=== PATIENT | female | born 1960 ===

== ENCOUNTER → 2023-03-11 11:44 | Outpatient (CLI) | payer BC, SELFPAY ==
--- NOTE | ~2023-03-11 | CT_ITS ---
CT of the Abdomen and Pelvis: Indication: Diverticulosis Technique: 2.5 mm axial scans were obtained through the abdomen and pelvis following intravenous adm inistration of 100 cc of Omnipaque 350. Dose reduction technique was used on this scan by utilizing a utomated exposure control and iterative reconstruction technique. The dose-length product (DLP) was 1 124.76 mGy-cm. Findings: Scans through the lung bases are unremarkable. The liver, spleen, pancreas, gallbladder, right adrenal gland, and left kidney are within normal limi ts. 2 mm nonobstructing right renal stone noted. 2 cm left adrenal nodule is indeterminate based on t his exam. No evidence of aortic aneurysm. No bowel obstruction or bowel wall thickening. There is no evidence to suggest acute appendicitis. No significant diverticular disease identified. There are small shotty right lower quadrant lymph nodes . Images through the pelvis were performed. Urinary bladder unremarkable. Patient is post hysterectomy. No pelvic mass seen. No ascites. Impression: 2 mm nonobstructing right renal stone. 2 cm indeterminate left adrenal nodule. Consider follow-up noncontrast CT or MR to attempt to confirm adenoma. Small shotty right lower quadrant lymph nodes. Consider mesenteric adenitis. No significant diverticular disease identified. Reviewed, dictated and finalized at location . Impression: 2 mm nonobstructing right renal stone. 2 cm indeterminate left adrenal nodule. Consider follow-up noncontrast CT or MR to attempt to confirm adenoma. Small shotty right lower quadrant lymph nodes. Consider mesenteric adenitis. No significant diverticular disease identified.
[2023-03-11 12:02] LABS: Estimated Glomerular Filt Rate 50
== END ==
PROVIDERS: PCP Pediatrics; Visit Provider Nurse Practitioner Family
DX: K57.30 Diverticulosis of large intestine without perforation or abscess without bleeding (principal); N20.0 Calculus of kidney; R59.0 Localized enlarged lymph nodes; E27.9 Disorder of adrenal gland, unspecified
CPT/HCPCS: 74177; Q9967

== ENCOUNTER → 2023-03-19 10:02 | Outpatient (CLI) | payer BC, SELFPAY ==
--- NOTE | ~2023-03-19 | MR_ITS ---
EXAMINATION: MR abdomen wo con DATE: 03/19/2023 10:50 INDICATION: Mesenteric adenitis. Generalized abdominal pain. TECHNIQUE: Magnetic resonance imaging (MRI) of the abdomen was performed without intravenous contrast . COMPARISON: CT abdomen and pelvis 03/11/2023 FINDINGS: The liver is normal. There are gallstones in the gallbladder, which is normal in size. There is a 7 m m cystic lesion in the pancreas. The spleen and right adrenal gland are normal. There is a 2.1 cm mas s in left adrenal gland containing microscopic fat, consistent with an adenoma. The kidneys are qiana l. There are no dilated loops of bowel. There are no pathologically enlarged lymph nodes. There is no free intraperitoneal fluid. IMPRESSION: 1. 2.1 cm left adrenal adenoma. 2. 7 mm cystic lesion in the pancreas. The differential diagnosis includes pseudocyst, intraductal pa pillary mucinous neoplasm (IPMN), mucinous cystic neoplasm (MCN), serous cystadenoma, and neuroendocr ine tumor. Abdomen MRI without and with contrast is recommended in one year. Reviewed, dictated and finalized at location A. IMPRESSION: 1. 2.1 cm left adrenal adenoma. 2. 7 mm cystic lesion in the pancreas. The differential diagnosis includes pseu docyst, intraductal papillary mucinous neoplasm (IPMN), mucinous cystic neoplas m (MCN), serous cystadenoma, and neuroendocrine tumor. Abdomen MRI without and with contrast is recommended in one year.
== END ==
PROVIDERS: PCP Internal Medicine Rheumatology; Visit Provider Nurse Practitioner Family
DX: I88.0 Nonspecific mesenteric lymphadenitis (principal); D35.00 Benign neoplasm of unspecified adrenal gland; N20.0 Calculus of kidney; K86.2 Cyst of pancreas
CPT/HCPCS: 74181

== ENCOUNTER → 2023-06-25 10:02 | Outpatient (CLI) | payer MEDICARE, BC, SELFPAY ==
--- NOTE | ~2023-06-25 | MR_ITS ---
MRI of the cervical spine Clinical History: Neck pain Technique: Axial T2-weighted and gradient images, and sagittal T1-weighted, T2-weighted, and STIR bubba ges were acquired. Findings: No acute fracture seen. There is 2-3 mm anterolisthesis of C3 over C4. No bone marrow signa l abnormality seen. At C2-C3, there is no disc bulge or herniation. No spinal canal stenosis, cord compression, or neural foraminal narrowing. At C3-C4, there is minimal disc bulge. There is mild facet arthropathy. Questionable minimal neural f oraminal narrowing bilaterally. No central canal stenosis or cord compression. At C4-C5, there is minimal disc osteophyte complex. Possible minimal left neural foraminal narrowing with mild left facet arthropathy. No right neural foraminal narrowing. No rishi central canal stenosi s or cord compression. At C5-C6, there is minimal disc ossify complex with minimal canal stenosis but no rishi cord compress ion. Bilateral neural foramina are preserved. At C6-C7, there is no disc bulge or herniation. No spinal canal stenosis, cord compression, or neural foraminal narrowing. No prevertebral soft tissue swelling. No abnormal signal seen in the spinal cord. Impression: 2-3 mm anterolisthesis of C3 over C4. Mild degenerative spondylosis, as above. Reviewed, dictated and finalized at [facility]. 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 Mild degenerative spondylosis, as above.
== END ==
PROVIDERS: PCP Pediatrics; Visit Provider Internal Medicine Rheumatology
DX: M54.2 Cervicalgia (principal); M43.12 Spondylolisthesis, cervical region
CPT/HCPCS: 72141

== ENCOUNTER 2023-10-16 06:54 | Outpatient (CLI) | payer MEDICARE, SELFPAY ==
--- NOTE | ~2023-10-16 | MR_ITS ---
MRI of the lumbar spine Clinical History: Back pain Technique: Axial T2-weighted images, and sagittal T1-weighted, T2-weighted, and T2 fat-sat images wer e acquired. Findings: No fracture identified. There is 3 mm anterolisthesis of L4 over L5. There is 2 mm retrolis thesis of L2 over L3. No suspicious bone marrow signal abnormality seen. There are reactive marrow si gnal changes due to degenerative disc disease, probably about the L2-L3 and L4-L5 disc spaces. At L1-L2, there is no significant disc bulge or herniation. There is mild facet arthropathy. No centr al canal stenosis or neural foraminal narrowing. At L2-L3, there is severe degenerative disc narrowing. There is disc bulge and moderate facet arthrop athy. No central canal stenosis. There is moderate to advanced left neural foraminal narrowing. Right neural foramen preserved. At L3-L4, there is advanced degenerative disc narrowing. There is minimal disc bulge with mild to mod erate facet arthropathy. No central canal stenosis. There is moderate to advanced right neural forami nal narrowing, and mild left neural foraminal narrowing. At L4-L5, there is severe degenerative disc narrowing. There is diffuse disc bulge with superimposed central protrusion, and severe facet arthropathy. There is moderate central canal stenosis. There is severe right neural foraminal compromise, and moderate to advanced left neural foraminal conference. At L5-S1, there is minimal disc bulge with moderate facet arthropathy. No central canal stenosis. The re is mild bilateral neural foraminal narrowing. Paravertebral soft tissues are unremarkable. Impression: Severe degenerative spondylosis at L4-L5, as detailed above. Moderate degenerative spondylosis at L2-L3, L3-L4, as detailed above. 3 mm anterolisthesis of L4 over L5. 2 mm retrolisthesis of L2 over L3. Additional mild degenerative changes, as above. Reviewed, dictated and finalized at location . [employer]PER[employer]OR Impression: Severe degenerative spondylosis at L4-L5, as detailed above. Moderate degenerative spondylosis at L2-L3, L3-L4, as detailed above. 3 mm anterolisthesis of L4 over L5. 2 mm retrolisthesis of L2 over L3. Additional mild degenerative changes, as above.
== END 2023-10-16 06:55 ==
LOC: MICIMG 06:56
PROVIDERS: PCP Pediatrics; Visit Provider Internal Medicine Rheumatology
DX: M43.16 Spondylolisthesis, lumbar region (principal)
CPT/HCPCS: 72148